=== PATIENT | female | born 1940 ===

== ENCOUNTER 2017-02-05 15:43 | Emergency (ER) | payer MEDICARE ==
[2017-02-05 15:53] VITALS: BMI 23.0
[2017-02-05 16:00] VITALS: RESP 18; TEMP 98.1; O2SAT 99
--- NOTE | 2017-02-05 17:05 | CT ---
PROCEDURE: CT HEAD WITHOUT CONTRAST. HISTORY: head injury s/p fall 2 days ago COMPARISON: None available. TECHNIQUE: Axial computed tomography images were obtained through the head/brain without intravenous contrast. Radiation dose: Total exam DLP = 15 86.30 mGy-cm. This CT exam was performed using one or more of the following dose reduction techniques: Automated exposure control, adjustment of the mA and/or kV according to patient size, and/or use of iterative reconstruction technique. FINDINGS: Streak artifact obscures evaluation of the skullbase. HEMORRHAGE: No intracranial hemorrhage. BRAIN: Diffuse atrophy with prominence of the ventricles and sulci noted. No mass effect or edema. Mild scattered white matter hypodensities, which are nonspecific, but often seen with chronic microvascular ischemic disease. Please note that MRI with diffusion imaging is more sensitive in the detection of acute ischemic event. VENTRICLES: No hydrocephalus. CALVARIUM: Unremarkable. PARANASAL SINUSES: Unremarkable as visualized. No significant inflammatory changes. MASTOID AIR CELLS: Unremarkable as visualized. No inflammatory changes. OTHER FINDINGS: Small right frontal scalp hematoma. IMPRESSION: Small right frontal scalp hematoma. Generalized atrophy. Scattered nonspecific white matter changes.
[2017-02-05 17:29] LABS: BASO % 0.6 % (0.0-2.0); EOS # 0.1 K/uL (0.0-0.7); EOS % 1.4 % (0.0-4.0); HEMATOCRIT 38.3 % (34.0-47.0); LYMPH % 16.4 % (20.0-40.0); MEAN CELL VOLUME 83.6 fL (81.0-99.0); MEAN CORPUSCULAR HEMOGLOBIN 27.3 pg (27.0-31.0); MEAN CORPUSCULAR HGB CONC 32.7 g/dL (33.0-37.0); MEAN PLATELET VOLUME 7.9 fL (7.2-11.7); MONO # 0.6 K/uL (0.0-0.8); RED CELL DISTRIBUTION WIDTH 13.9 % (11.5-14.5); WHITE BLOOD COUNT 6.3 K/uL (4.8-10.8)
--- NOTE | 2017-02-05 17:29 | CT ---
PROCEDURE: CT scan orbits dated the 02/05/2017 HISTORY: Right periorbital ecchymoses s/p fall 2 days ago COMPARISON: Comparison made with concurrent CT scan brain TECHNIQUE: Axial CT images of the orbits were obtained. Coronal and sagittal reformats were generated. Radiation dose: Total exam DLP = 736.8 mGy-cm. This CT exam was performed using one or more of the following dose reduction techniques: Automated exposure control, adjustment of the mA and/or kV according to patient size, and/or use of iterative reconstruction t technique. FINDINGS: The current study reveals no evidence of acute maxillofacial skeletal fractures. The bony orbits appear intact. Globes are intact however there are changes of bilateral cataract surgery. There are no retrobulbar hemorrhages or collections. Optic nerves and extraocular musculature unremarkable. There is mild right-sided periorbital soft tissue swelling that extends inferiorly into the right premaxillary soft tissues as well as into the right supraorbital and right frontotemporal region. Aside from left-sided cataract surgery the left orbit and contents unremarkable. . The visualized paranasal sinuses are well-developed and currently well-aerated. There are no fluid levels seen to suggest acute hemorrhage or sinusitis. There may be some minimal mucosal thickening within few ethmoid air cells. Nasal bones and anterior nasal spine intact. The mandible appears intact. . Incidental note made of partially empty sella. Impression: No evidence of acute maxillofacial skeletal fracture. Bony orbits appear intact. . Right sided facial soft tissue swelling as described. Bilateral cataract surgery.
[2017-02-05 17:38] LABS: CHLORIDE 103 mmol/L (98-107)
[2017-02-05 17:39] LABS: POTASSIUM 4.2 mmol/L (3.6-5.2); SODIUM 139 mmol/L (132-148)
[2017-02-05 17:41] LABS: ALB/GLOB RATIO 1.2 (1.0-2.1); ALKALINE PHOSPHATASE 92 U/L (38-126); AST/SGOT 42 U/L (14-36); BILIRUBIN,TOTAL 1.1 mg/dL (0.2-1.3); CARBON DIOXIDE 26 mmol/L (22-30); GFR AFRICAN-AMERICAN > 60; TOTAL PROTEIN 7.1 g/dL (6.3-8.3)
[2017-02-05 17:42] LABS: ALT/SGPT 24 U/L (9-52); BLOOD UREA NITROGEN 14 mg/dL (7-17); CALCIUM 9.1 mg/dl (8.6-10.4); GLUCOSE,RANDOM 94 mg/dL (65-105)
[2017-02-05 17:43] LABS: INR 1.1
--- NOTE | 2017-02-05 17:59 | C.PDOC ---
History Of Present Illness Pt states that she was watching TV while sitting on her couch when she fell asleep and fell to the ground, hitting her head. Time Seen by Provider: 02/05/17 16:09 Chief Complaint (Nursing): Trauma History Per: Patient, Family Injury Occurred (Timing): Days Ago: (2) Patient States: Fell Striking Head Severity: Moderate Loss Of Consciousness: No Additional History Per: Prior Records Past Medical History Reviewed: Historical Data, Nursing Documentation, Vital Signs Vital Signs: Last Vital Signs Temp 98.1 F 02/05/17 15:53 Pulse 67 02/05/17 15:53 Resp 18 02/05/17 15:53 BP 121/80 02/05/17 15:53 Pulse Ox 99 02/05/17 18:00 - Medical History PMH: HTN, Hypercholesterolemia, Rheumatoid Arthritis Family History: States: Unknown Family Hx - Social History Hx Alcohol Use: No Hx Substance Use: No - Immunization History Hx Tetanus Toxoid Vaccination: No Hx Influenza Vaccination: No Hx Pneumococcal Vaccination: No Review Of Systems Except As Marked, All Systems Reviewed And Found Negative. Constitutional: Negative for: Fever, Weakness Eyes: Negative for: Vision Change Cardiovascular: Negative for: Chest Pain Respiratory: Negative for: Shortness of Breath Gastrointestinal: Negative for: Nausea, Vomiting, Abdominal Pain Musculoskeletal: Negative for: Neck Pain, Back Pain Skin: Positive for: Bruising Neurological: Positive for: Headache. Negative for: Weakness, Numbness, Confusion, Seizures, Altered Mental Status Physical Exam - Physical Exam Appears: Non-toxic, No Acute Distress Skin: Warm, Dry Head: No Laceration, Other (Right periorbital ecchymoses) Eye(s): bilateral: PERRL, EOMI Neck: Normal ROM, No Midline Cervical Tenderness, No Step Off Deformity, Supple Chest: Symmetrical, No Deformity Cardiovascular: Rhythm Regular Respiratory: Normal Breath Sounds, No Accessory Muscle Use Gastrointestinal/Abdominal: Soft, No Tenderness Extremity: Normal ROM, No Deformity Neurological/Psych: Oriented x3, Normal Speech, Normal Cognition, Normal Motor, Normal Sensation ED Course And Treatment - Laboratory Results Result Diagrams: 02/05/17 17:26 02/05/17 17:26 Lab Interpretation: No Acute Changes O2 Sat by Pulse Oximetry: 99 Pulse Ox Interpretation: Normal - Radiology Nexus Criteria: Negative - CT Scan/US CT head Other Rad Studies (CT/US): Read By Radiologist, Radiology Report Reviewed CT/US Interpretation: IMPRESSION: Small right frontal scalp hematoma. Generalized atrophy. Scattered nonspecific white matter changes. CT orbits Other Rad Studies (CT/US): Read By Radiologist, Radiology Report Reviewed CT/US Interpretation: Impression: No evidence of acute maxillofacial skeletal fracture. Bony orbits appear intact. . Right sided facial soft tissue swelling as described. Bilateral cataract surgery. Reassessment Condition: Improved Disposition Counseled Patient/Family Regarding: Studies Performed, Diagnosis, Need For Followup - Disposition Referrals: Kamille Martin MD [Medical Doctor] - Disposition: HOME/ ROUTINE Disposition Time: 18:03 Condition: STABLE Additional Instructions: Follow up with your doctor. Return to the ER if you develop weakness, numbness, vomiting, change in vision, worsening of symptoms or if you have any other concerns. Instructions: Head Injury (ED) - Clinical Impression Clinical Impression: Traumatic periorbital ecchymosis of right eye
[2017-02-05 18:53] VITALS: BP 128/82; PULSE 62
== END 2017-02-05 18:53 | disposition home or self-care (01) ==
LOC: C.ER 15:43
DX: S05.11XA Contusion of eyeball and orbital tissues, right eye, initial encounter (principal); W07.XXXA Fall from chair, initial encounter; Y93.89 Activity, other specified; Y92.008 Other place in unspecified non-institutional (private) residence as the place of occurrence of the external cause

== ENCOUNTER 2017-05-07 07:16 | Inpatient (IN) | payer MEDICARE ==
[2017-04-10 10:25] VITALS: BMI 35.3
[2017-05-07] MEDS ORDERED: Bupivacaine Liposomal Inj 20 ml INFIL ONE (08:00)
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
[2017-05-07] MEDS ORDERED: Propofol 10 mg/ml Inj (20 ML) ONE (08:08)
[2017-05-07] MEDS ORDERED: ceFAZolin IV 2 gm in Dextrose 1 GM/50 ML BAG IVPB ONE (08:11)
[2017-05-07] MEDS ORDERED: Lactated Ringer's 1,000 ML IV ONE ×4 (08:18→13:06)
[2017-05-07] MEDS ORDERED: Lidocaine Hydrochloride 5 ML INJ ONE (08:31)
[2017-05-07] MEDS ORDERED: Rocuronium 10 mg/ml (10 ml) ONE ×2 (08:35→11:55)
[2017-05-07] MEDS ORDERED: Sodium Chloride 0.9% 60 ML IV ONE (08:48)
[2017-05-07] MEDS: Bacitracin 150,000 UNIT in Sodium Chloride 0.9% Irrig 3,000 ML IR SCH ×2 (09:43→11:36)
[2017-05-07] MEDS ORDERED: Vancomycin 1 g Inj ONE ×3 (10:51→11:11)
[2017-05-07] MEDS ORDERED: Morphine 4 MG/ML VIAL ONE (11:16)
[2017-05-07] MEDS ORDERED: Neostigmine Methylsulfate 3mg/3ml Syringe IV ONE (11:55)
[2017-05-07] MEDS ORDERED: White Petrolatum/Mineral Oil Ophth Oint(3.5 gm) ONE (11:55)
[2017-05-07] MEDS ORDERED: HYDROmorphone 0.5 mg/0.5 ml ISec IVP PRN (13:01)
[2017-05-07] MEDS ORDERED: Bupivacaine HCl 0.5% PF (10 ml) Inj ONE (13:24)
--- NOTE | 2017-05-07 13:42 | PCM.SURG1 ---
Surgeon's Initial Post Op Note - Surgeon's Notes Surgeon: Angy Naylor Administrative Fellow: Amber Cruz PA-C Type of Anesthesia: General Endo Anesthesia Administered By: Dr. Pereira Pre-Operative Diagnosis: Left knee DJD Operative Findings: Tourniquet: 124 min @300mmHg Post-Operative Diagnosis: same Operation Performed: Left knee TKR Specimen/Specimens Removed: bone Estimated Blood Loss: EBL {In ML}: 200 Blood Products Given: N/A Drains Used: Hemovac, Wound Vac Post-Op Condition: Fair Date of Surgery/Procedure: 05/07/17 Time of Surgery/Procedure: 13:41
--- NOTE | 2017-05-07 13:55 | PCM.ANESB3 ---
Femoral Nerve Block - Femoral Nerve Block Date of Procedure: 05/07/17 Anesthesiologist: Jaimie Pre-Procedure Diagnosis: Left knee OA Post-Procedure Diagnosis: Left knee OA Procedure Performed: Femoral Nerve Block Left - Procedure Femoral Nerve Block: The procedure was explained to the patient that it is for the post-operative pain management. Consent was obtained after a thorough discussion with the patient regarding the benefits and possible complications of local anesthetic block of the femoral nerve at the inguinal crease area. The patient was brought to the operating room and standard monitors were applied. Time-out was held with the circulating nurse to confirm the correct surgery and the appropriate block. After applying oxygen by nasal cannula and administering IV Sedation, patient was placed in supine position with fully extended lower extremities and the groin exposed. The femoral artery was then carefully palpated. The ultrasound transducer was then applied to this area in the transverse plane and the femoral nerve was visualized lateral to the femoral artery and underneath the fascia iliaca. After thorough identification, the inguinal crease area was prepped with Betadine solution three times and 1 % Lidocaine was injected subcutaneously for topical anesthesia. At this point, a #22 gauge Stimuplex 4-inch needle was inserted immediately lateral to the femoral artery pulse at the inguinal crease and advanced perpendicularly. The needle was inserted to the ultrasound transducer in-plane towards the femoral nerve in a [id number] direction. Needle advancement was performed carefully under direct ultrasound visualization. Nerve stimulator was used and twitch of the quadriceps muscle was obtained at current of MA. After negative aspiration, 20 cc of 0.5 % bupivicainewas injected. . Under ultrasound guidance the local anesthetics were observed spreading below fascia iliaca and around the femoral nerve. The needle was removed intact and sterile dressing was applied. The patient had stable vital signs, was conscious and in no apparent distress. The patient tolerated the femoral nerve block well with stable vital signs and was prepared for subsequent surgery.
--- NOTE | 2017-05-07 14:12 | OP ---
PROCEDURE DATE: 05/07/2017 PREOPERATIVE DIAGNOSIS: Left knee arthritis. POSTOPERATIVE DIAGNOSIS: Left knee arthritis. PROCEDURE: Left total knee arthroplasty. SURGEON: Germain Gaxiola MD MANAGER NON PROFIT: Dr. Gaxiola was assisted by Isaac Cruz, third year medical student. Ms. Cruz, physician radiology practitioner assistant was scrubbed and present throughout the entire case and assisted in patient positioning, retraction, and wound closure. TYPE OF ANESTHESIA: General. COMPLICATIONS: None. ESTIMATED BLOOD LOSS: 150 mL. TOURNIQUET TIME: 124 minutes. IMPLANT: Biomet SSK knee. INDICATIONS FOR THE PROCEDURE: This is a 76-year-old female presented with longstanding left knee pain and deformity. Clinical and radiographic examination consisted with advanced tricompartmental degenerative changes with numerous large calcified loose bodies. RECOMMENDATIONS: Left total knee arthroplasty. The risks, benefits and alternatives of the procedures were discussed with the patient and informed consent was obtained. OPERATIVE PROCEDURE: After the surgical site was finally verified in the preoperative holding area, the patient was taken to the operating room and placed in supine on the operating table. After administration of general anesthesia, Solis catheter was inserted. The patient received 2 g of Ancef IV. Tourniquet was placed about the left thigh. VA9 boot was placed on the nonoperative extremity. Care was taken to make sure all bony prominences and nerves were well padded and protected and the left lower extremity was prepped and draped in the usual sterile fashion. Left lower extremity was exsanguinated and the tourniquet was inflated approximately 12 cm longitudinal midline incision was made. Soft tissue was dissected sharply down to the knee joint. Medial parapatellar arthrotomy was performed. Medial and lateral menisci resected as were the ACL and PCL. Once the knee joint was adequately exposed, the step drill was used to drill into the medullary canal and distal femur. The intramedullary distal femoral resection guide was inserted and pinned into place. A distal femoral resection was performed. At this point, a femoral component was sized and 4-in-1 cut block was inserted was pinned into place. Anterior and posterior cuts were performed. At this point, numerous large loose bodies were noted laterally and posteriorly and these were all removed. Our attention was directed then to the tibia. Extramedullary tibia cutting guide was inserted and pinned into place. Tibial resection was performed and flexion and extension gaps were checked. The patient has noted to be significantly loose in extension medially as well with both extension and flexion. Due to the mild laxity a decision was made to convert to a constrained compartment. Next, the box cut on distal tibia was enlarged. The medullary canal proximal tibia was then reamed and broached punched to allow 16 x 120 stent. Similarly the medullary canal of the tibia was reamed to accommodate a 14 x 80 stent. Care was taken to maintain proper rotation on the tibial component and at this moment, trial tibia, trial femur, and trial bearing were placed and the knee was taken through range of motion and the patient noted to have full extension and flexion and stable with varus and valgus stress. Our attention directed to the patella. Thickness of the patella was measured and patella resection was performed. Patellar button was sized and holes for patellar button was then drilled. The trial patella was then inserted and the knee was taken to the range of motion. The patient was noted to have increased lateral tilt and this was corrected by performing lateral retinacular release. Once this was done, the patella was noted to track normally. At this point, all the trial components were removed and the knee joint was pulse lavaged with antibiotic saline solution. The bony surfaces were dried and the actual tibial, femoral, and patellar components were cemented into place. Care was taken to remove all excess cement. Once the cement hardened, the wound was inspected for any debris and once again it was pulse lavaged. The actual bearing was inserted and locked into place with a cross-pin. The tourniquet was deflated and any obvious bleeding was cauterized. A medium Hemovac drain was inserted and arthrotomy was closed using #1 Vicryl suture. The subcutaneous tissue was closed using 0 Vicryl and 2-0 Vicryl suture and the skin was closed using nessa. A wound vacuum assisted closure device was placed and Brewer dressing was applied. The patient was awakened from the procedure, taken to the recovery room in stable condition. Germain Gaxiola MD
--- NOTE | 2017-05-07 14:18 | RAD ---
PROCEDURE: AP and cross-table lateral portable views of the left knee performed. COMPARISON: No prior study available for comparison FINDINGS: BONES: Status post left total knee replacement. There is satisfactory alignment. . Expected unremarkable postoperative changes within the surrounding soft tissues with in situ drainage catheter and overlying skin closure Impression: : Status post left TKR with satisfactory alignment. . Expected postoperative changes within the surrounding soft tissues as above
[2017-05-07] MEDS: Sodium Chloride 0.9% 1,000 ML IV SCH (17:00)
[2017-05-07 17:46] VITALS: RESP 20
[2017-05-07] MEDS: ceFAZolin IV 2 gm in Dextrose 2 GM/100 ML BAG IVPB SCH (18:41)
[2017-05-07] MEDS: Rosuvastatin Calcium 2.5 mg Tab PO SCH (21:32)
[2017-05-08] MEDS: ceFAZolin IV 2 gm in Dextrose 2 GM/100 ML BAG IVPB SCH (02:26)
[2017-05-08] MEDS: Sodium Chloride 0.9% 1,000 ML IV SCH ×3 (02:27→15:00)
[2017-05-08 06:33] LABS: MEAN CELL VOLUME 82.6 fL (81.0-99.0); MEAN CORPUSCULAR HEMOGLOBIN 27.5 pg (27.0-31.0); MEAN CORPUSCULAR HGB CONC 33.2 g/dL (33.0-37.0); MEAN PLATELET VOLUME 7.9 fL (7.2-11.7); RED CELL DISTRIBUTION WIDTH 13.8 % (11.5-14.5); WHITE BLOOD COUNT 7.6 K/uL (4.8-10.8)
[2017-05-08 07:38] LABS: CHLORIDE 108 mmol/L (98-107)
[2017-05-08 07:39] LABS: POTASSIUM 4.2 mmol/L (3.6-5.2); SODIUM 138 mmol/L (132-148)
[2017-05-08 07:41] LABS: GFR AFRICAN-AMERICAN > 60
[2017-05-08 07:42] LABS: BLOOD UREA NITROGEN 14 mg/dL (7-17); CALCIUM 8.1 mg/dl (8.6-10.4); CARBON DIOXIDE 25 mmol/L (22-30); GLUCOSE,RANDOM 86 mg/dL (65-105)
--- NOTE | 2017-05-08 08:12 | CP.PCM.PN ---
Subjective - Date & Time of Evaluation Date of Evaluation: 05/08/17 Time of Evaluation: 08:10 - Subjective Subjective: Patient states pain is well controlled. Denies CP/SOB/dizziness/numbness/ tingling. Complains of mild headache. Objective - Vital Signs/Intake and Output Vital Signs (last 24 hours): Temp Pulse Resp BP Pulse Ox 98 F 96 H 20 109/71 97 05/08/17 04:33 05/08/17 04:33 05/08/17 04:33 05/08/17 04:33 05/07/17 23:30 Intake and Output: 05/08/17 05/08/17 06:59 18:59 Intake Total 480 Output Total 1170 Balance -690 - Medications Medications: Current Medications Acetaminophen (Tylenol 325mg Tab) 650 mg PO Q4 PRN PRN Reason: Fever 101 degrees fahrenheit Docusate Sodium (Colace) 100 mg PO BID [facility] Last Admin: 05/07/17 18:41 Dose: 100 mg Enoxaparin Sodium (Lovenox) 40 mg SC DAILY [facility] Hydrochlorothiazide (Hydrodiuril) 25 mg PO DAILY [facility] Sodium Chloride (Sodium Chloride 0.9%) 1,000 mls @ 80 mls/hr IV .[id number] [facility] Last Admin: 05/08/17 05:53 Dose: 80 mls/hr Losartan Potassium (Cozaar) 100 mg PO DAILY [facility] Morphine Sulfate (Morphine) 2 mg IVP Q4H PRN PRN Reason: Pain, severe (8-10) Last Admin: 05/08/17 02:20 Dose: 2 mg Oxycodone/Acetaminophen (Percocet 5/325 Mg Tab) 1 tab PO Q4 PRN PRN Reason: Pain, moderate (4-7) Stop: 05/10/17 13:43 Rosuvastatin Calcium (Crestor) 2.5 mg PO HS [facility] Last Admin: 05/07/17 21:32 Dose: 2.5 mg - Labs Labs: 05/08/17 06:20 05/08/17 06:20 - Extremities Exam Additional comments: LLE: drain intact, 500cc last shift Kari functioning +ROM ankle/toes sensation intact +DP/PT pulses leg elevated, mild swelling to foot knee immobilizer intact Assessment and Plan (1) Primary osteoarthritis of left knee Assessment & Plan: POD#1 s/p L TKR -PT/OT -CPM -d/c planning labs in am VTE proph d/w Dr. Gaxiola, agrees with above Status: Acute (2) Acute blood loss anemia Assessment & Plan: labs in am monitor currently hemodynamically stable Status: Acute (3) HTN (hypertension) Status: Chronic (4) Hyperlipidemia Status: Chronic
[2017-05-08] MEDS: Enoxaparin 40 mg Syringe SC SCH (10:43)
[2017-05-08 14:06] LABS: HEMATOCRIT 28.6 % (34.0-47.0); MEAN CELL VOLUME 83.4 fL (81.0-99.0); MEAN CORPUSCULAR HEMOGLOBIN 27.4 pg (27.0-31.0); MEAN CORPUSCULAR HGB CONC 32.9 g/dL (33.0-37.0); MEAN PLATELET VOLUME 8.1 fL (7.2-11.7); RED CELL DISTRIBUTION WIDTH 13.8 % (11.5-14.5); WHITE BLOOD COUNT 6.8 K/uL (4.8-10.8)
[2017-05-08] MEDS: Oxycodone/Acetaminophen 5/325 mg Tab PO PRN (16:48)
[2017-05-08] MEDS: Rosuvastatin Calcium 2.5 mg Tab PO SCH (21:36)
[2017-05-09] MEDS: Sodium Chloride 0.9% 1,000 ML IV SCH ×2 (03:33→06:35)
[2017-05-09 07:43] LABS: HEMATOCRIT 26.9 % (34.0-47.0); MEAN CELL VOLUME 83.4 fL (81.0-99.0); MEAN CORPUSCULAR HEMOGLOBIN 27.5 pg (27.0-31.0); MEAN PLATELET VOLUME 8.2 fL (7.2-11.7); RED CELL DISTRIBUTION WIDTH 13.7 % (11.5-14.5); WHITE BLOOD COUNT 6.7 K/uL (4.8-10.8)
[2017-05-09 08:02] LABS: BLOOD UREA NITROGEN 9 mg/dL (7-17); CALCIUM 8.1 mg/dl (8.6-10.4); CARBON DIOXIDE 27 mmol/L (22-30); CHLORIDE 103 mmol/L (98-107); GFR AFRICAN-AMERICAN > 60; GLUCOSE,RANDOM 77 mg/dL (65-105); POTASSIUM 3.9 mmol/L (3.6-5.2); SODIUM 137 mmol/L (132-148)
--- NOTE | 2017-05-09 08:19 | CP.PCM.PN ---
Subjective - Date & Time of Evaluation Date of Evaluation: 05/09/17 Time of Evaluation: 08:15 - Subjective Subjective: Patient says knee pain is well controlled. Complaining of headache even while in bed. Denies CP/SOB/dizziness/numbness/tingling. Objective - Vital Signs/Intake and Output Vital Signs (last 24 hours): Temp Pulse Resp BP Pulse Ox 98.1 F 99 H 20 122/82 96 05/09/17 04:35 05/09/17 04:35 05/09/17 04:35 05/09/17 04:35 05/09/17 04:35 Intake and Output: 05/09/17 05/09/17 06:59 18:59 Intake Total 640 Output Total 270 Balance 370 - Medications Medications: Current Medications Acetaminophen (Tylenol 325mg Tab) 650 mg PO Q4 PRN PRN Reason: Fever 101 degrees fahrenheit Docusate Sodium (Colace) 100 mg PO BID [facility] Last Admin: 05/08/17 18:17 Dose: 100 mg Enoxaparin Sodium (Lovenox) 40 mg SC DAILY [facility] Last Admin: 05/08/17 10:43 Dose: 40 mg Hydrochlorothiazide (Hydrodiuril) 25 mg PO DAILY [facility] Last Admin: 05/08/17 10:46 Dose: Not Given Ketorolac Tromethamine (Toradol) 30 mg IVP ONCE ONE Stop: 05/09/17 08:31 Losartan Potassium (Cozaar) 100 mg PO DAILY [facility] Last Admin: 05/08/17 10:46 Dose: Not Given Morphine Sulfate (Morphine) 2 mg IVP Q4H PRN PRN Reason: Pain, severe (8-10) Last Admin: 05/09/17 01:36 Dose: 2 mg Oxycodone/Acetaminophen (Percocet 5/325 Mg Tab) 1 tab PO Q4 PRN PRN Reason: Pain, moderate (4-7) Stop: 05/10/17 13:43 Last Admin: 05/08/17 16:48 Dose: 1 tab Pneumococcal Polyvalent Vaccine (Pneumovax 23 Vaccine) 0.5 ml IM .ONCE ONE Stop: 05/10/17 10:01 Rosuvastatin Calcium (Crestor) 2.5 mg PO [facility] Last Admin: 05/08/17 21:36 Dose: 2.5 mg - Labs Labs: 05/09/17 07:36 09/07/17 07:36 - Extremities Exam Additional comments: +ROM ankle/toes DF/PF, sensation intact, +DP/PT pulses, calves soft NT neg homans incision intact, scant sang drainage, marielle reapplied, hemovac pulled Assessment and Plan (1) Primary osteoarthritis of left knee Assessment & Plan: POD#2 s/p R TKR -PT/OT -d/c planning -will try toradol for headache -CPM -d/c planning -labs in am -d/w Dr. Gaxiola agrees with above Status: Acute (2) Acute blood loss anemia Assessment & Plan: hemodynamically stable will stop IVF Status: Acute (3) HTN (hypertension) Status: Chronic (4) Hyperlipidemia Status: Chronic
[2017-05-09] MEDS: Enoxaparin 40 mg Syringe SC SCH ×2 (09:48→09:50)
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
[2017-05-09] MEDS: Oxycodone/Acetaminophen 5/325 mg Tab PO PRN (21:24)
[2017-05-09] MEDS: Rosuvastatin Calcium 2.5 mg Tab PO SCH (21:24)
[2017-05-10 07:19] LABS: HEMATOCRIT 24.8 % (34.0-47.0); MEAN CELL VOLUME 83.1 fL (81.0-99.0); MEAN CORPUSCULAR HEMOGLOBIN 27.3 pg (27.0-31.0); MEAN CORPUSCULAR HGB CONC 32.8 g/dL (33.0-37.0); MEAN PLATELET VOLUME 8.2 fL (7.2-11.7); RED CELL DISTRIBUTION WIDTH 13.8 % (11.5-14.5); WHITE BLOOD COUNT 5.8 K/uL (4.8-10.8)
[2017-05-10 07:25] LABS: CHLORIDE 105 mmol/L (98-107)
[2017-05-10 07:26] LABS: SODIUM 137 mmol/L (132-148)
[2017-05-10 07:28] LABS: ALKALINE PHOSPHATASE 68 U/L (38-126); AST/SGOT 40 U/L (14-36); BLOOD UREA NITROGEN 9 mg/dL (7-17); CARBON DIOXIDE 26 mmol/L (22-30); GFR AFRICAN-AMERICAN > 60
[2017-05-10 07:29] LABS: ALT/SGPT 30 U/L (9-52); CALCIUM 7.8 mg/dl (8.6-10.4); GLUCOSE,RANDOM 70 mg/dL (65-105)
[2017-05-10 08:20] VITALS: O2SAT 96
--- NOTE | 2017-05-10 09:21 | CP.PCM.PN ---
Subjective - Date & Time of Evaluation Date of Evaluation: 05/10/17 Time of Evaluation: :17 - Subjective Subjective: Patient states headache is gone. Knee pain is controlled. Denies CP/SOB/ dizziness/palp Objective - Vital Signs/Intake and Output Vital Signs (last 24 hours): Temp Pulse Resp BP Pulse Ox 98.5 F 78 20 118/77 96 05/10/17 07:00 05/10/17 07:00 05/10/17 07:00 05/10/17 07:00 05/10/17 07:00 - Medications Medications: Current Medications Acetaminophen (Tylenol 325mg Tab) 650 mg PO Q4 PRN PRN Reason: Fever 101 degrees fahrenheit Docusate Sodium (Colace) 100 mg PO BID [facility] Last Admin: 05/09/17 18:05 Dose: 100 mg Enoxaparin Sodium (Lovenox) 40 mg SC DAILY [facility] Last Admin: 05/09/17 09:50 Dose: 40 mg Ferrous Sulfate (Feosol) 325 mg PO DAILY [facility] Hydrochlorothiazide (Hydrodiuril) 25 mg PO DAILY [facility] Last Admin: 05/09/17 09:24 Dose: 25 mg Losartan Potassium (Cozaar) 100 mg PO DAILY [facility] Last Admin: 05/09/17 09:24 Dose: 100 mg Morphine Sulfate (Morphine) 2 mg IVP Q4H PRN PRN Reason: Pain, severe (8-10) Last Admin: 05/10/17 00:36 Dose: 2 mg Oxycodone/Acetaminophen (Percocet 5/325 Mg Tab) 1 tab PO Q4 PRN PRN Reason: Pain, moderate (4-7) Stop: 05/10/17 13:43 Last Admin: 05/09/17 21:24 Dose: 1 tab Pneumococcal Polyvalent Vaccine (Pneumovax 23 Vaccine) 0.5 ml IM .ONCE ONE Stop: 05/10/17 10:01 Rosuvastatin Calcium (Crestor) 2.5 mg PO [facility] Last Admin: 05/09/17 21:24 Dose: 2.5 mg - Labs Labs: 05/10/17 07:09 05/10/17 07:09 - Extremities Exam Additional comments: LLE: marielle removed. small amount serous drainage on dressing, no active drainage , no drainage from hemovac site. Sensation intact, +ROM ankle/toes, +DP/PT pulses calves soft NT neg homans Assessment and Plan (1) Primary osteoarthritis of left knee Assessment & Plan: POD#3 s/p L TKR -awaiting auth from insurance for rehab placement -d/c to [facility] today, orthopedically stable -PT/OT -VTE proph -d/w Dr. Gaxiola, agrees with above Status: Acute (2) Acute blood loss anemia Assessment & Plan: hemodynamically stable and asymtomatic Status: Acute (3) HTN (hypertension) Status: Chronic (4) Hyperlipidemia Status: Chronic
[2017-05-10] MEDS ORDERED: Pneumococcal 23-Valent Vaccine IM ONE (10:00)
[2017-05-10] MEDS ORDERED: Multiple Vitamins Tab PO SCH (10:00)
--- NOTE | 2017-05-10 10:28 | CP.PCM.DIS ---
Provider - Provider Date of Admission: 05/07/17 07:16 Attending physician: Germain Gaxiola MD Primary care physician: Dr. Starr Consults: Dr. Bustamante Time Spent in preparation of Discharge (in minutes): 5 Diagnosis - Discharge Diagnosis (1) Primary osteoarthritis of left knee Status: Acute (2) Acute blood loss anemia Status: Acute (3) HTN (hypertension) Status: Chronic (4) Hyperlipidemia Status: Chronic Hospital Course - Lab Results Lab Results: Most Recent Lab Values WBC 5.8 K/uL (4.8-10.8) 05/10/17 07:09 RBC 2.99 Mil/uL (3.80-5.20) L 05/10/17 07:09 Hgb 8.1 g/dL (11.0-16.0) L 05/10/17 07:09 Hct 24.8 % (34.0-47.0) L 05/10/17 07:09 MCV 83.1 fL (81.0-99.0) 05/10/17 07:09 MCH 27.3 pg (27.0-31.0) 05/10/17 07:09 MCHC 32.8 g/dL (33.0-37.0) L 05/10/17 07:09 RDW 13.8 % (11.5-14.5) 05/10/17 07:09 Plt Count 188 K/uL (130-400) 05/10/17 07:09 MPV 8.2 fL (7.2-11.7) 05/10/17 07:09 Sodium 137 mmol/L (132-148) 05/10/17 07:09 Potassium 4.0 mmol/L (3.6-5.2) 05/10/17 07:09 Chloride 105 mmol/L (98-107) 05/10/17 07:09 Carbon Dioxide 26 mmol/L (22-30) 05/10/17 07:09 Anion Gap 9 (10-20) L 05/10/17 07:09 BUN 9 mg/dL (7-17) 05/10/17 07:09 Creatinine 0.6 MG/DL (0.7-1.2) L 05/10/17 07:09 Est GFR ( Amer) > 60 05/10/17 07:09 Est GFR (Non-Af Amer) > 60 05/10/17 07:09 Random Glucose 70 mg/dL (65-105) 05/10/17 07:09 Calcium 7.8 mg/dl (8.6-10.4) L 05/10/17 07:09 Total Bilirubin 1.0 mg/dL (0.2-1.3) 05/10/17 07:09 AST 40 U/L (14-36) H 05/10/17 07:09 ALT 30 U/L (9-52) 05/10/17 07:09 Alkaline Phosphatase 68 U/L (38-126) 05/10/17 07:09 Total Protein 5.0 g/dL (6.3-8.3) L 05/10/17 07:09 Albumin 2.5 g/dL (3.5-5.0) L D 05/10/17 07:09 Globulin 2.5 gm/dL (2.2-3.9) 05/10/17 07:09 Albumin/Globulin Ratio 1.0 (1.0-2.1) 05/10/17 07:09 Blood Type O POSITIVE 05/07/17 09:40 Antibody Screen Negative 05/07/17 09:40 - Hospital Course Hospital Course: 76M with PMH: HTN, hypercholesterolemia with left knee osteoarthritis failed conservative management and elected for TKR. Postoperative imaging demonstrated acceptable position of prosthesis. Medical consultation was requested for post operative medical management. HTN controlled throughout admission. Patients post operative course was complicated by acute blood loss anemia, hemodynamically stable and well tolerated, no treatment needed. Patient tolerated PT/OT well. Patient received VTE prophylaxis in the form of lovenox 40mg SQ q24h and venodynes. Patient was instructed to maintain knee immobilizer at night, to remove during the day, and instructed patient to continue aggressive ROM of the knee. PT was discharged to [facility] rehab, and continued on home medications as well as the lovenox. Patient was WBAT LLE, ambulating with walker, and given instructions for daily dressing changes and to f/u Dr. Gaxiola within 2 weeks. Discharge Plan - Follow Up Plan Condition: GOOD Disposition: REHAB FACILITY/REHAB UNIT Referrals: Germain Gaxiola MD [Staff Provider] - 05/23/17 (dressing change left knee daily until dry knee immobilizer must be worn at night, can remove during the day weight bearing as tolerated left leg f/u Dr. Gaxiola office 10-14 days, call for appointment)
[2017-05-10] MEDS: Enoxaparin 40 mg Syringe SC SCH (10:34)
[2017-05-10 12:28] VITALS: BP 121/69; PULSE 92; TEMP 98.8
[2017-05-10] MEDS: Oxycodone/Acetaminophen 5/325 mg Tab PO PRN (12:29)
--- NOTE | 2017-05-10 13:07 | PN ---
SUBJECTIVE: I saw her at [facility] this morning. She is comfortably resting in bed. I believe the drain is taken out of the knee. The knee is very bandaged. She is comfortable in bed, slept well, very well last night she told me. She is eating, and she is a trying a physical therapy. PHYSICAL EXAMINATION: VITAL SIGNS: She has a 97.8 temp, 80 pulse, 112/70 blood pressure, 20 respiratory rate, and 97% O2 sat on room air. HEENT: Head is atraumatic, normocephalic. HEART: Regular rate. LUNGS: Decreased breath sounds, but clear. ABDOMEN: Soft and obese. EXTREMITIES: Her left leg is bandaged and the knee immobilizer. MEDICATIONS: She is currently on Colace, Cozaar, Crestor, HydroDIURIL, Lovenox, morphine, Percocet, Tylenol. LABORATORY DATA: She has a 5.8 white count, 8.1 hemoglobin, I am attempted to transfuse her. 24.8 hematocrit with 188 platelets. Chemistry is 137 sodium, potassium 4, BUN 9, creatinine 0.6, GFR greater than 60. Sugar is 70, calcium is 7.8, total bili is 1, AST is 40, ALT is 30, alk phos is 68, total protein is 5. PLAN: She is being seen by the orthopedic surgeon. I will add iron to her medicine. She might need a transfusion. I will start her on iron. I will check her labs, and she could probably end up going back to [facility] now for physical therapy. I will keep an eye over there. We will check her stool for C. diff just in case. She is status post total left knee replacement. She has hypertension, high cholesterol, now she is fairly anemic. Jose Bustamante DO
== END 2017-05-10 15:15 | DRG 470 ==
LOC: C.9S 07:16 → C.6T 17:17
PROVIDERS: ADMIT Orthopaedic Surgery; ATTEND Orthopaedic Surgery
PROC: 0SRD0J9 Replacement of Left Knee Joint with Synthetic Substitute, Cemented, Open Approach (ICD-10-PCS; principal; 2017-05-07 10:45)
DX: M17.12 Unilateral primary osteoarthritis, left knee (principal); D62 Acute posthemorrhagic anemia; I10 Essential (primary) hypertension; E78.5 Hyperlipidemia, unspecified; E78.00 Pure hypercholesterolemia, unspecified; Z90.710 Acquired absence of both cervix and uterus